=== PATIENT | male | born 1955 | race Caucasian/White ===

== ENCOUNTER → 2022-01-30 | Outpatient (CLI) | payer MEDICARE ==
[~2022-01-30] MED LIST: BUPIVACAINE HCL 0.25% P/F 10 ML VIAL ONE; IOHEXOL 300 MG/ML 100ML BOTTLE IJ ONE; LIDOCAINE 2%HCL (LOCAL ANESTH.) INJ 10ml MDV ONE; SILD20TA12 PO; ZOLP10TA PO; [UNRECOGNIZED DRUG - CODE] PO; methylPREDNISolone ACETATE 80 MG/ML VL ONE
== END | disposition home or self-care (01) ==
LOC: XY 13:23
PROVIDERS: ATTEND Orthopaedic Surgery Sports Medicine
DX: M25.521 Pain in right elbow (principal); M19.012 Primary osteoarthritis, left shoulder
CPT/HCPCS: 20605; 73070; J1040; J2001; J3490; Q9967; 20610; 76000